=== PATIENT | female | born 1940 | race Caucasian/White ===

== ENCOUNTER 2022-08-27 09:48 | Day surgery (SDC) | payer MEDICARE, OTHER ==
[~2022-08-27] VITALS: Ht 162.6 cm; Wt 74.8 kg
[~2022-08-27 09:48] MED LIST: CIPROFLOXACIN 0.3% OPHTH OINTMENT As Ordered ONE; SIMV40TA20 PO
[2022-08-27] MEDS ORDERED: SODIUM BICARBONATE 4.2% INJ 10ML SYRINGE As Ordered ONE (12:05)
[2022-08-27] MEDS ORDERED: propofoL 200 MG/20 ML VIAL As Ordered ONE (12:15)
[2022-08-27] MEDS ORDERED: TOBRADEX OPHTH OINT 3.5 GM As Ordered ONE (12:46)
[2022-08-27] MEDS ORDERED: MIDAZOLAM INJ 2MG/2ML VIAL As Ordered ONE (13:05)
[2022-08-27] MEDS ORDERED: fentaNYL 100 MCG/2 ML INJECTION As Ordered ONE (13:05)
[2022-08-27] MEDS ORDERED: LIDOCAINE 2% W/EPINEPHRINE 20ML VIAL **PRES FREE As Ordered ONE (13:17)
[2022-08-27] MEDS ORDERED: PERCOCET 5MG/325MG TAB PO ONE (13:45)
[2022-08-27 14:30] VITALS: BP 158/82
== END 2022-08-27 14:35 | disposition home or self-care (01) ==
LOC: M SDC 09:48
PROVIDERS: ATTEND Ophthalmology
DX: H02.403 Unspecified ptosis of bilateral eyelids (principal); E78.5 Hyperlipidemia, unspecified; Z88.2 Allergy status to sulfonamides; Z79.899 Other long term (current) drug therapy
CPT/HCPCS: 15822; 88302; 88305; J2250; J3010